=== PATIENT | male | born 1995 | race Caucasian/White ===

== ENCOUNTER → 2016-12-09 | Outpatient (CLI) | payer OTHER ==
[~2016-12-09] MED LIST: CIPRO500 MG PO; FLEXERIL10 MG PO; HYDROCODONE BIT1 T11 PO; MOTRIN800 MG PO; NKHM; PRILOSEC40 MG PO; ULTRAM50 MG PO
[2016-12-09 15:05] LABS: HEMATOCRIT 44.5 % (42.0-52.0); HEMOGLOBIN 15.1 g/dl (14.0-18.0); MEAN CELL VOLUME 88.3 fl (80.0-94.0); MEAN CORPUSCULAR HGB CONC 33.9 g/dl (33.0-37.0); MEAN PLATELET VOLUME 11.2 fl (9.6-12.3); RED BLOOD COUNT 5.04 10*6/uL (4.50-5.90); RED CELL DISTRI WIDTH 12.2 % (0-14.5)
[2016-12-09 15:23] LABS: HEMOGLOBIN A1c 5.2 % (4.8-5.6)
[2016-12-09 15:30] LABS: ALBUMIN 4.3 gm/dl (3.1-4.5); ALKALINE PHOSPHATASE 60 U/L (45-117); BILIRUBIN, TOTAL 0.6 mg/dl (0.2-1.0); BUN 9 mg/dl (7-24); CARBON DIOXIDE 30 mmol/L (21-32); CHLORIDE 104 mmol/L (98-107); EST GLOM FILT AFRICAN AMERICAN > 60 ml/min; GLUCOSE 74 mg/dL (65-99); POTASSIUM 3.8 mmol/L (3.5-5.1); SGOT/AST 16 IU/L (3-35); SGPT/ALT 21 U/L (12-78); SODIUM 144 mmol/L (136-145); TOTAL PROTEIN 7.5 gm/dL (6.4-8.2)
== END | disposition home or self-care (01) ==
LOC: LAB 14:41
PROVIDERS: Family Medicine
DX: E87.5 Hyperkalemia (principal); E74.9 Disorder of carbohydrate metabolism, unspecified; R42 Dizziness and giddiness; R51 Headache

== ENCOUNTER → 2023-02-04 | Outpatient (CLI) | payer BC ==
[2023-02-04 14:04] LABS: BASO % 0.5 % (0.0-1.0); EOS # 0.1 10*3/uL (0.0-0.4); EOS % 1.5 % (1.0-4.0); HEMATOCRIT 46.9 % (42.0-52.0); LYMPH % 27.5 % (27.0-41.0); MEAN CELL VOLUME 88.7 fl (80.0-94.0); MEAN CORPUSCULAR HGB 31.6 pg (27.0-31.0); MEAN CORPUSCULAR HGB CONC 35.6 g/dl (33.0-37.0); MEAN PLATELET VOLUME 11.1 fl (9.6-12.3); MONO # 0.6 10*3/uL (0.1-1.0); MONO % 8.5 % (3.0-9.0); NEUT # 4.4 10*3/uL (2.3-7.9); NEUT % 60.5 % (47.0-73.0); PLATELET COUNT AUTOMATED 294 10*3/uL (130-400); RED BLOOD COUNT 5.29 10*6/uL (4.50-5.90); RED CELL DISTRI WIDTH 11.5 % (0-14.5); WHITE BLOOD COUNT 7.3 10*3/uL (4.8-10.8)
[2023-02-04 14:33] LABS: ALKALINE PHOSPHATASE 60 U/L (46-116); BUN 9 mg/dl (9-23); CHLORIDE 104 mmol/L (98-107); CHOLESTEROL 163 mg/dL (<200); LDL CHOLESTEROL 89 mg/dL (9-159); POTASSIUM 4.3 mmol/L (3.4-5.1); SGPT/ALT 27 U/L (10-49); TOTAL PROTEIN 8.1 gm/dL (6.0-8.0); TRIGLYCERIDES 129 mg/dl (<150)
== END | disposition home or self-care (01) ==
LOC: LAB 13:35
PROVIDERS: ATTEND Student in an Organized Health Care Education/Training Program
DX: F10.10 Alcohol abuse, uncomplicated (principal)